=== PATIENT | male | born 1945 | race Caucasian/White ===

== ENCOUNTER 2016-12-22 05:41 | Inpatient (IN) ==
--- NOTE | 2016-12-11 04:47 | EKG Report ---
Stationary ECG Study [facility] Test Date: 12/10/2016 11:43:10 AM Pat Name: MALIK LEVINE Department: Room: Gender: M Seat Joiner Chainstitch: RADHA SPENCER : 1945 Requested by: Malik Spencer Order Number: [id number] Reading MD: ROSSANA COTTER Intervals [place] Rate: 61 P: 55 AK: 199 QRS: 28 QRSD: 96 T: -19 QT: 443 QTc: 446 Interpretive Statements SINUS RHYTHM PROBABLE INFERIOR MYOCARDIAL INFARCTION, PROBABLY OLD WITH POSTERIOR EXTENSION INTERPRETATION BASED ON A DEFAULT AGE OF 40 YEARS Electronically Signed On 12-10-16 16:59:32 CDT by ROSSANA COTTER [email or web address]
[2016-12-22] MEDS ORDERED: TRANEXAMIC ACID 1,000 MG/10 ML VIAL IV ONE (05:59)
[2016-12-22] MEDS ORDERED: VANCOMYCIN INJ 1,000 MG in SODIUM CHLORIDE 0.9% 250 ML IV ONE (06:00)
[2016-12-22] MEDS ORDERED: ceFAZolin 1,000 MG VIAL ONE (06:16)
[2016-12-22] MEDS ORDERED: SODIUM CHLORIDE 0.9% 100 ML IV ONE (06:16)
[2016-12-22] MEDS ORDERED: VANCOMYCIN 1,000 MG VIAL ONE (06:16)
[2016-12-22] MEDS: LACTATED RINGERS 1,000 ML IV SCH ×2 (06:29→11:35)
[2016-12-22 06:34] LABS: INR 1.1; PT Patient Result 11.6 SECS; Partial Thromboplastin Time 28.9 SECS (0-40)
--- NOTE | 2016-12-22 07:00 | History and Physical Update ---
History and Physical Update - History and Physical H&P was reviewed, the patient examined and there: are no changes in the patients condition since last H&P was completed.
[2016-12-22] MEDS ORDERED: LIDOCAINE 2% 5 ML VIAL ONE (07:02)
[2016-12-22] MEDS ORDERED: PROPOFOL 200 MG/20 ML VIAL IV ONE (07:02)
[2016-12-22] MEDS ORDERED: NALOXONE 0.4 MG/ML VIAL IV PRN (07:16)
[2016-12-22] MEDS ORDERED: HYDROmorphone 2 MG/1 ML VIAL IV PRN (07:16)
[2016-12-22] MEDS ORDERED: BISACODYL 10 MG SUPP RECTAL PRN (07:16)
[2016-12-22] MEDS ORDERED: ONDANSETRON 4 MG/2 ML VIAL IV PRN (07:16)
[2016-12-22] MEDS ORDERED: MAGNESIUM HYDROXIDE SUSP 30 ML UDCUP PO PRN (07:16)
[2016-12-22] MEDS ORDERED: TEMAZEPAM 7.5 MG CAPSULE PO PRN (07:16)
[2016-12-22] MEDS ORDERED: LACTULOSE 20 GM/30 ML UDCUP PO PRN (07:16)
[2016-12-22] MEDS ORDERED: ROPIVACAINE 0.5% 30 ML VIAL ONE (07:43)
[2016-12-22] MEDS: HYDROmorphone PCA 30 MG/30 ML SYRINGE IV SCH (09:09)
--- NOTE | 2016-12-22 09:17 | XRay Report ---
History: Postop right knee replacement Date: 12/22/2016 Study: Right knee 2 views Comparison exam: No previous The patient is immediately status post right knee replacement. The knee prosthesis appears well conjugated. Surgical drains and skin connie overlie the soft tissues anteriorly. Impression: Immediately postop right knee replacement with satisfactory result PROCEDURE INTERPRETED AT [facility] DEPARTMENT OF RADIOLOGY Final Report Signed by: Dr. Kalyn Goel
[2016-12-22] MEDS ORDERED: MIDAZOLAM 2 MG/2 ML VIAL ONE (11:54)
[2016-12-22] MEDS: DOCUSATE SODIUM 100 MG CAPSULE PO SCH ×2 (13:18→20:20)
[2016-12-22] MEDS: ceFAZolin 2,000 MG in PREMIX 1 EACH IV SCH ×2 (13:18→19:29)
[2016-12-22] MEDS: MULTIVITAMIN (CENTRUM) TABLET PO SCH (13:18)
--- NOTE | 2016-12-22 16:00 | Operative Note ---
DATE OF SURGERY: 12/22/2016 PREOPERATIVE DIAGNOSIS: OSTEOARTHRITIS, RIGHT KNEE. POSTOPERATIVE DIAGNOSIS: OSTEOARTHRITIS, RIGHT KNEE. OPERATIVE PROCEDURE: RIGHT TOTAL KNEE (ATT[place]E) SURGEON: Alan Hernandez Jr., MD EXERCISER: Christina. ANESTHESIA: Spinal. INDICATIONS: A 71-year-old white male with severe osteoarthritis, right knee. He has maximized cons ervative treatment through the years including previous arthroscopy, multiple injections, oral anti-i nflammatories and even occasional walking aid. He is felt to be a candidate for knee replacement, pr esenting today for elective procedure. OPERATIVE PROCEDURE: The patient was taken to the operating room and under spinal anesthetic, positi oned in the supine position. The right leg was positioned, prepped and draped in the usual sterile m mayco. He received Vancomycin and Ancef preoperatively. The limb was elevated, exsanguinated, and t he tourniquet inflated to 300 mmHg. A midline incision made over the anterior aspect of the right kn ee. Sharp dissection was carried down through skin and subcutaneous tissue. A median parapatellar a rthrotomy performed with the knee revealing moderate effusion and extensive tricompartmental degenera tive changes and huge osteophytes, especially medial. Intramedullary alignment guides were used to m patrica the appropriate cuts about the distal femur and proximal tibia. The femur was sized to a 7, the tibia to an 8. The PCL retained. A 7 mm spacer was selected. The patella resurfaced with a 38 butt on. All trial components were removed. The knee irrigated and all three components submitted into p lace. After the cement hardened, the knee was irrigated and closed over two 1/8th-inch Hemovac drain s in a standard fashion using #1 Vicryl for the arthrotomy, 2-0 Vicryl for the subcutaneous layer, an d connie for skin. Sterile dressing applied. The tourniquet was deflated during wound closure at 4 5 minutes. He was taken to recovery room in a stable condition.
[2016-12-22] MEDS ORDERED: WARFARIN 5 MG TABLET PO SCH (18:00)
[2016-12-22 18:02] LABS: Basophils % 0.1 % (0.0-0.8); Hematocrit 39.6 VOL% (42.0-52.0); Hemoglobin 13.2 GM/DL (14.0-18.0); Immature Granulocytes % 0.4 %; Immature Granulocytes Absolute 0.05 #; Lymphocytes # 0.7 10*3/uL (1.4-4.0); Lymphocytes % 5.4 % (21.2-54.2); Mean Corpuscular HGB Conc 33.3 GM/DL (32-36); Mean Corpuscular Hemoglobin 32 PG (27-34); Mean Corpuscular Volume 95.9 FL (87-102); Mean Platelet Volume 10.9 FL (9.6-12.0); Monocytes % 7.8 % (1.7-12.7); Neutrophils # 10.6 10*3/uL (1.4-7.4); Neutrophils % 86.3 % (38.7-73.9); Platelet Count 160 T/CUMM (130-400); Red Blood Count 4.13 MC/CUMM (3.8-5.5); Red Cell Distribution Width 13.6 % (9.3-17.3); White Blood Count 12.2 T/CUMM (4-12)
[2016-12-22 18:37] LABS: Calcium 8.2 MG/DL (8.5-10.1); Osmolality,Calculated 283.3 MOS/KG (273-304); Potassium 4.1 MMOL/L (3.5-5.1)
[2016-12-22] MEDS: FONDAPARINUX 2.5 MG/0.5 ML SYRINGE SUBCUT SCH (22:01)
[2016-12-23] MEDS: LACTATED RINGERS 1,000 ML IV SCH ×4 (03:00→23:32)
[2016-12-23 06:27] LABS: Basophils % 0.1 % (0.0-0.8); Eosinophils % 0.3 % (0.00-10.9); Hematocrit 35.7 VOL% (42.0-52.0); Hemoglobin 12.1 GM/DL (14.0-18.0); Immature Granulocytes % 0.4 %; Immature Granulocytes Absolute 0.04 #; Lymphocytes # 1.6 10*3/uL (1.4-4.0); Lymphocytes % 16.4 % (21.2-54.2); Mean Corpuscular HGB Conc 33.9 GM/DL (32-36); Mean Corpuscular Hemoglobin 32 PG (27-34); Mean Corpuscular Volume 94.9 FL (87-102); Mean Platelet Volume 10.2 FL (9.6-12.0); Monocytes # 1.2 10*3/uL (0.11-0.8); Monocytes % 12.1 % (1.7-12.7); Neutrophils # 6.8 10*3/uL (1.4-7.4); Neutrophils % 70.7 % (38.7-73.9); Platelet Count 146 T/CUMM (130-400); Red Blood Count 3.76 MC/CUMM (3.8-5.5); Red Cell Distribution Width 13.7 % (9.3-17.3); White Blood Count 9.6 T/CUMM (4-12)
[2016-12-23 06:52] LABS: Calcium 7.9 MG/DL (8.5-10.1); Osmolality,Calculated 279.5 MOS/KG (273-304); Potassium 4.1 MMOL/L (3.5-5.1)
[2016-12-23] MEDS: HYDROmorphone PCA 30 MG/30 ML SYRINGE IV SCH (07:51)
--- NOTE | 2016-12-23 07:55 | Family Practice Progress Note ---
Family Practice - PN: Subj Interval history: Patient is doing well status post right total knee replacement yesterday. He is not having any shortness of breath or chest pain. He is on Arixtra and has restarted his Coumadin. He states his knee is feeling much better this morning. Exam (Progress Note) - Constitutional Vitals: Period Temp Pulse Resp BP Sys/Gipson Pulse Ox Last 24 Hr 97.2 F-99.7 F 50-83 16-20 92-131/47-71 92-100 Exam: Objective well-developed gentleman in no acute distress. Is able to give good history. He has no dyspnea at rest. Cardiovascular: Heart rates regular without murmurs or gallops. Respiratory: Lungs clear to auscultation throughout. Abdomen: Soft and nontender to palpation. Results - Labs CBC & BMP: 12/23/16 06:09 12/23/16 06:09 Lab Results: I have reviewed the past 24 hour labs Assessment and Plan (1) Status post total right knee replacement Status: Acute Assessment and plan: 12/23/2016: Patient is doing well postop. Current Visit: Yes
--- NOTE | 2016-12-23 08:41 | Orthopedic Progress Note ---
Orthopedics - Subjective Interval history: Drain pulled 0700. H&H stable discussed ready for PT neurovascular intact Exam - Constitutional Vitals: Period Temp Pulse Resp BP Sys/Gipson Pulse Ox Last 24 Hr 97.2 F-99.7 F 50-83 16-20 92-131/47-71 92-100 Results - Labs CBC & BMP: 12/23/16 06:09 12/23/16 06:09
[2016-12-23] MEDS: MULTIVITAMIN (CENTRUM) TABLET PO SCH (09:17)
[2016-12-23] MEDS: DOCUSATE SODIUM 100 MG CAPSULE PO SCH ×2 (09:17→20:23)
--- NOTE | 2016-12-23 11:20 | Pathology Report from [facility] ---
[facility] ACCESSION # : [id number] PATIENT NAME : Malik Levine ORDERING DR : MALIK SPENCER JR, MD CLINICAL HX: RT knee ostoearthritis POST-OP DX: Same SPECIMEN INFO: RT knee bone & tissue GROSS DESCRIPTION: The specimen is received in formalin labeled MALIK LEVINE consists of fragments of bone, cartilage and adipose tissue, collectively measures 16.2 x 12.5 cm. The articular surfaces are focally degenerative. Cartilaginous lipping is present. Tennis Net Maker tissue submitted in one cassette following decalcification. DIAGNOSIS FOR MALIK LEVINE: RIGHT KNEE BONE & TISSUE, TOTAL REPLACEMENT: Osteoarthritis. COLLECTED DATE: 12/22/2016 [facility] REPORT DATE: 12/23/2016 ELECTRONICALLY SIGNED BY: Perfecto Huerta M.D. 12/23/2016 - 9:47:36 [facility]
--- NOTE | 2016-12-23 17:30 | Orthopedic Progress Note ---
Orthopedics - Subjective Interval history: PT went well no complaints continue supportive measures and PT Exam - Constitutional Vitals: Period Temp Pulse Resp BP Sys/Gipson Pulse Ox Last 24 Hr 97.9 F-99.7 F 66-83 16-20 106-132/53-68 94-95 Results - Labs CBC & BMP: 12/23/16 06:09 12/23/16 06:09
[2016-12-23] MEDS: WARFARIN 3 MG TABLET PO SCH (18:08)
[2016-12-23] MEDS: FONDAPARINUX 2.5 MG/0.5 ML SYRINGE SUBCUT SCH (20:23)
[2016-12-24] MEDS: PROMETHAZINE 25 MG/1 ML VIAL IM PRN (06:23)
[2016-12-24] MEDS: HYDROmorphone PCA 30 MG/30 ML SYRINGE IV SCH (07:17)
--- NOTE | 2016-12-24 07:52 | Family Practice Progress Note ---
Family Practice - PN: Subj Interval history: Patient states he had a good night but is feeling nauseated this morning. He denies any abdominal pain and he does not have any chest pain or shortness of breath. His vital signs are stable. States his right knee is feeling better. Exam (Progress Note) - Constitutional Vitals: Period Temp Pulse Resp BP Sys/Gipson Pulse Ox Last 24 Hr 96.8 F-99.3 F 73-88 16-18 111-140/64-73 93-96 Exam: Objective well-developed gentleman in no acute distress. Is able to give good history. He has no dyspnea at rest. Cardiovascular: Heart rates regular without murmurs or gallops. Respiratory: Lungs clear to auscultation throughout. Abdomen: Soft and nontender to palpation. Results - Labs CBC & BMP: 12/23/16 06:09 12/23/16 06:09 Lab Results: I have reviewed the past 24 hour labs Assessment and Plan (1) Status post total right knee replacement Status: Acute Assessment and plan: 12/23/2016: Patient is doing well postop. 12/04/2016: Patient doing postop but has a bit of nausea this morning. We will watch this closely. Current Visit: Yes
--- NOTE | 2016-12-24 08:34 | Orthopedic Progress Note ---
Orthopedics - Subjective Interval history: Some nausea this morning ready for PT home with home health likely tomorrow or Thursday. Wound dry Exam - Constitutional Vitals: Period Temp Pulse Resp BP Sys/Gipson Pulse Ox Last 24 Hr 96.8 F-99.3 F 73-88 16-18 111-140/64-73 93-96 Results - Labs CBC & BMP: 12/23/16 06:09 12/23/16 06:09
[2016-12-24] MEDS: MULTIVITAMIN (CENTRUM) TABLET PO SCH (09:49)
[2016-12-24] MEDS: DOCUSATE SODIUM 100 MG CAPSULE PO SCH ×2 (09:50→20:33)
[2016-12-24] MEDS: WARFARIN 3 MG TABLET PO SCH (18:23)
--- NOTE | 2016-12-25 07:51 | Orthopedic Progress Note ---
Orthopedics - Subjective Interval history: Still with occasional nausea otherwise doing well mobilizing in evidently were discharged home today with home health services. Instructed Exam - Constitutional Vitals: Period Temp Pulse Resp BP Sys/Gipson Pulse Ox Last 24 Hr 98.0 F-98.9 F 74-85 14-20 114-145/62-80 95-98 Results - Labs CBC & BMP: 12/23/16 06:09 12/23/16 06:09
--- NOTE | 2016-12-25 07:53 | Discharge Summary ---
Hospital Course - Hospital Course Hospital Course: Elective total knee admission uncomplicated course discharged home Discharge Plan - Discharge Data Disposition: Home Health Service Condition at Discharge: Stable Discharge Diet: advance to your usual diet Activity: ambulate only with your walker, as per physical therapy, increase activity as tolerated Hygiene: keep area(s) dry Weight Bearing at Discharge: weight bear as tolerated Driving: not until seen by doctor - Discharge Medications New HYDROcodone/ACETAMIN 7.5-325 [Shell 7.5-325] 1 tablet PO Q4H PRN #25 tablet PRN Reason: Pain Moderate (4-7) Continue Multivitamin [Multivitamins] 1 tablet PO DAILY Warfarin [Coumadin] 5 mg PO MO Warfarin [Coumadin] 3 mg PO SUTUWETHFRSA - Follow Up or Referral - Forms/Instructions Additional Discharge Instructions: Discharge home with home health services total knee protocol with CPM unit walker ambulating with weightbearing as tolerated connie to be removed and wound Steri-Stripped January 05. Continue home medications including Coumadin Narco for pain follow-up with me 4 weeks Exam - Constitutional Vitals: Period Temp Pulse Resp BP Sys/Gipson Pulse Ox Last 24 Hr 98.0 F-98.9 F 74-85 14-20 114-145/62-80 95-98 DS: Provider Date of admission: 12/22/16 05:41 Primary care physician: Vinnie Urbano MD Attending physician on admission: Alan Hernandez Jr., MD Consults: 12/22/16 07:16 Consult to Case Mgmt/Social Srvs [CONS] Routine Reason for Case Mgmt/Social Srvs: Rehab Home Health Equipment Consult Comment: Bedside Commode, CPM, del to rm 322 before D/C; Pt 5ft 10in 262lbs Consult to Occupational Therapy [CONS] Routine Reason for Occupational Therapy: Evaluate and Treat Consult Comment: ADL's Consult to Physical Therapy [CONS] Routine Reason for Physical Therapy: Evaluate and Treat Gait Training Consult Comment: wbat 12/22/16 07:19 Consult to Physician [CONS] Routine Comment: Consulting Provider: Vinnie Urbano Consulting Provider Notified: Yes When should Consulting Provider be notified: Now Person Notified: october Date Notified: 12/22/16 Time Notified: 13:30 Consult Notification Comment: message left at office 1001 12/22/16 12/22/16 10:23 Consult to Pastoral Services [CONS] Routine Comment: Pastoral Screen: Request Silk Worker Visit Pastoral Screen Source of Request: Patient 12/22/16 16:53 Consult to Physical Therapy [CONS] Routine Reason for Physical Therapy: Other Consult Comment: Please deliver a Standard Walker to room before D/C for home Rehab. Discharging clinician: Alan Hernandez Jr., MD
--- NOTE | 2016-12-25 08:00 | Family Practice Progress Note ---
Family Practice - PN: Subj Interval history: Patient doing well this morning states his nausea seems to have improved and he is ready to eat breakfast. His hematocrit is stable. I told him we would add Protonix to his present medications. Exam (Progress Note) - Constitutional Vitals: Period Temp Pulse Resp BP Sys/Gipson Pulse Ox Last 24 Hr 98.0 F-98.9 F 74-85 14-20 114-145/62-80 95-98 Exam: Objective well-developed gentleman in no acute distress. Is able to give good history. He has no dyspnea at rest. Cardiovascular: Heart rates regular without murmurs or gallops. Respiratory: Lungs clear to auscultation throughout. Abdomen: Soft and nontender to palpation. Results - Labs CBC & BMP: 12/23/16 06:09 12/23/16 06:09 Lab Results: I have reviewed the past 24 hour labs Assessment and Plan (1) Status post total right knee replacement Status: Acute Assessment and plan: 12/23/2016: Patient is doing well postop. 12/24/2016: Patient doing postop but has a bit of nausea this morning. We will watch this closely. 12/25/2016: Patient is doing well postop Current Visit: Yes
[2016-12-25] MEDS: MULTIVITAMIN (CENTRUM) TABLET PO SCH (08:13)
[2016-12-25] MEDS: DOCUSATE SODIUM 100 MG CAPSULE PO SCH (08:14)
[2016-12-25] MEDS: PROMETHAZINE 25 MG/1 ML VIAL IM PRN (08:22)
[2016-12-25 08:58] LABS: Basophils % 0.2 % (0.0-0.8); Eosinophils % 0.2 % (0.00-10.9); Hematocrit 36.5 VOL% (42.0-52.0); Hemoglobin 12.3 GM/DL (14.0-18.0); Immature Granulocytes % 0.4 %; Immature Granulocytes Absolute 0.04 #; Lymphocytes # 1.4 10*3/uL (1.4-4.0); Lymphocytes % 13.5 % (21.2-54.2); Mean Corpuscular HGB Conc 33.7 GM/DL (32-36); Mean Corpuscular Hemoglobin 32 PG (27-34); Mean Corpuscular Volume 94.3 FL (87-102); Mean Platelet Volume 10.1 FL (9.6-12.0); Monocytes # 0.8 10*3/uL (0.11-0.8); Monocytes % 7.2 % (1.7-12.7); Neutrophils # 8.4 10*3/uL (1.4-7.4); Neutrophils % 78.5 % (38.7-73.9); Platelet Count 175 T/CUMM (130-400); Red Blood Count 3.87 MC/CUMM (3.8-5.5); Red Cell Distribution Width 13.3 % (9.3-17.3); White Blood Count 10.7 T/CUMM (4-12)
[2016-12-25] MEDS ORDERED: PANTOPRAZOLE 40 MG TABLET PO SCH (09:00)
[2016-12-25 09:06] LABS: INR 1.5; PT Patient Result 16.1 SECS
[2016-12-25 11:48] VITALS: BP 142/67
== END 2016-12-25 14:00 | disposition home health service (06) | DRG 470 ==
LOC: N.SDSINP 05:41 → N.3E 09:05
PROVIDERS: ADMIT Orthopaedic Surgery; ATTEND Orthopaedic Surgery